=== PATIENT | female | born 1960 | race African-American/Black ===

== ENCOUNTER 2024-05-23 07:57 | Day surgery (SDC) | payer BC ==
[2024-04-20 07:37] LABS: Basophils # (auto) 0.1 10 ^3/uL (0-0.2); Eosinophils # (auto) 0.1 10 ^3/uL (0-0.8); Lymphocytes # (auto) 2.3 10 ^3/uL (0.4-5.4); Lymphocytes % (auto) 41.4 % (10.0-50.0); Mean Corpuscular Hemoglobin 30.2 pg (28.0-32.0); Mean Corpuscular Hgb Conc. 32.6 g/dL (32.0-36.0); Mean Corpuscular Volume 92.5 fL (80.0-100.0); Monocytes # (auto) 0.4 10 ^3/uL (0-1.3); Monocytes % (auto) 7.3 % (0.0-12.0); Neutrophils # (auto) 2.8 10 ^3/uL (1.6-8.6); Neutrophils % (auto) 49.3 % (37.0-80.0); Nucleated Red Blood Cells % 0.1 %; Platelet Count (auto) 282 10^3/uL (140-450); Red Blood Cells 4.97 10^6/uL (4.0-5.20); Red Cell Distribution Width 13.8 % (11.8-14.3); White Blood Cell 5.7 10^3/uL (4.4-10.8)
[2024-04-20 07:49] LABS: INR 1.04 (0.9-1.15); Partial Thromboplastin Time 25.9 SEC (24.5-34.5)
[2024-04-20 08:10] LABS: Alanine Aminotransferase 17 U/L (7-40); Alkaline Phosphatase 67 U/L (46-116); Anion Gap 7 (5-15); BUN/Creatinine Ratio 8.9 (10.0-20.0); Blood Urea Nitrogen 9 mg/dL (9-23); Calcium 9.9 mg/dL (8.7-10.4); Carbon Dioxide 29 mmol/L (20-31); Potassium 3.8 mmol/L (3.5-5.1); Sodium 143 mmol/L (136-145)
[2024-04-20 08:11] LABS: Albumin 4.3 g/dL (3.2-4.8); Aspartate Aminotransferase 22 U/L (13-40)
[2024-04-20 08:12] LABS: Bilirubin, Total 0.6 mg/dL (0.2-1.0); Chloride 107 mmol/L (98-107); Glucose 121 mg/dL (74-106); Total Protein 7.3 g/dL (5.7-8.2)
[2024-05-20 14:23] LABS: Basophils # (auto) 0.1 10 ^3/uL (0-0.2); Basophils % (auto) 0.9 % (0.0-2.0); Eosinophils # (auto) 0.1 10 ^3/uL (0-0.8); Eosinophils % (auto) 0.8 % (0.0-7.0); Hemoglobin 14.8 g/dL (12.2-16.2); Lymphocytes # (auto) 2.8 10 ^3/uL (0.4-5.4); Lymphocytes % (auto) 39.8 % (10.0-50.0); Mean Corpuscular Hemoglobin 30.5 pg (28.0-32.0); Mean Corpuscular Hgb Conc. 32.8 g/dL (32.0-36.0); Mean Corpuscular Volume 92.8 fL (80.0-100.0); Monocytes # (auto) 0.5 10 ^3/uL (0-1.3); Monocytes % (auto) 6.7 % (0.0-12.0); Neutrophils # (auto) 3.7 10 ^3/uL (1.6-8.6); Neutrophils % (auto) 51.8 % (37.0-80.0); Nucleated Red Blood Cells % 0.1 %; Platelet Count (auto) 283 10^3/uL (140-450); Red Blood Cells 4.85 10^6/uL (4.0-5.20); Red Cell Distribution Width 14.1 % (11.8-14.3); White Blood Cell 7.1 10^3/uL (4.4-10.8)
[2024-05-20 14:38] LABS: INR 1.06 (0.9-1.15); Partial Thromboplastin Time 25.7 SEC (24.5-34.5); Prothrombin Time 11.2 sec (9.3-11.8)
[2024-05-20 15:12] LABS: Alanine Aminotransferase 19 U/L (7-40); Albumin 4.5 g/dL (3.2-4.8); Alkaline Phosphatase 68 U/L (46-116); Anion Gap 7 (5-15); Aspartate Aminotransferase 20 U/L (13-40); BUN/Creatinine Ratio 18.2 (10.0-20.0); Bilirubin, Total 0.5 mg/dL (0.2-1.0); Blood Urea Nitrogen 16 mg/dL (9-23); Calcium 9.7 mg/dL (8.7-10.4); Carbon Dioxide 29 mmol/L (20-31); Glucose 88 mg/dL (74-106); Sodium 143 mmol/L (136-145); Total Protein 7.3 g/dL (5.7-8.2)
[2024-05-20 15:19] LABS: Chloride 107 mmol/L (98-107)
[~2024-05-23] VITALS: Ht 162.6 cm; Wt 85.3 kg
[~2024-05-23 07:57] MED LIST: DICL0.1S20 OP; METO-289 PO
[2024-05-23] MEDS ORDERED: SODIUM CHLORIDE LOCK 10 ML ONE (08:26)
[2024-05-23] MEDS ORDERED: MIDAZOLAM HCL 2MG/2ML 2ml VIAL (1mg/ml) ONE (08:26)
[2024-05-23 09:29] VITALS: PULSE 73; RESP 18; O2SAT 99
[2024-05-23] MEDS: fentaNYL CITRATE 100 MCG/2 ML VL ONE (09:37)
[2024-05-23] MEDS: MIDAZOLAM HCL 5 MG/ML-1ML VIAL ONE (09:37)
[2024-05-23 09:56] VITALS: PULSE 72; RESP 11; TEMP 99.3; O2SAT 99
--- NOTE | 2024-05-23 10:02 | DVHNC2 ---
Procedure - DATE OF PROCEDURE: May 23, 2024 SURGEON: MEGAN HENRY MD REFERRING PROVIDER: Dr. Nasra FRAZIER PROCEDURE PERFORMED: 1. Colonoscopy with cold biopsy with moderate sedation 2. Colonoscopy with clip placement to control bleeding with moderate sedation PRE-PROCEDURE DIAGNOSIS: 1. Blood in the stool POSTPROCEDURE DIAGNOSIS: 1. Five small colon polyps 2. Mild left-sided diverticulosis 3. Medium external hemorrhoids INDICATIONS FOR PROCEDURE: The patient is a 63-year-old female who presents for outpatient colonoscopy for rectal bleeding MEDICATIONS USED: 4 mg Versed IV and 50 mcg of fentanyl IV DETAILS OF THE PROCEDURE: Informed consent was obtained after risks, benefits, and alternatives, were discussed at length with the patient. The patient gave consent to the procedure as well as the medication used for sedation. The patient was placed in the left lateral decubitus position. Digital rectal exam showed external hemorrhoids. An Olympus variable torsion pediatric colonoscope was inserted into the rectum and advanced to the cecum. The cecum was identified by the ileocecal valve and the appendiceal orifice. The scope was then withdrawn. The prep was good with little amounts of liquid stool. The patient had five small colon polyps measuring between 3 mm and 4 mm all removed with cold biopsy forceps completely. A two in the cecum, one in the ascending colon, and two in the descending colon. In the descending colon there was oozing of blood from one of the polypectomy sites. Two Endoclips were placed for control of bleeding. The patient had mild left-sided diverticulosis. Retroflexion showed no abnormalities. More than 8 minutes withdrawal time was noted. The patient tolerated the procedure well. [place] BOWEL PREP SCORE: 9. COLONOSCOPY START TIME: 939 CECUM TIME: 943 COLONOSCOPY END TIME: 951 IMPRESSION: 1. Polyps more colon polyps 2. Mild left-sided diverticulosis 3. External hemorrhoids likely cause of bleeding RECOMMENDATIONS: 1. Follow up with procedure results 2. Repeat colonoscopy in five years unless otherwise indicated by pathology, symptoms were family history 3. High-fiber diet 4. Follow up with primary care physician 5. It was noted that the patient's blood pressure was elevated throughout the pr ocedure. Patient needs better blood pressure control . I WOULD LIKE TO THANK FOR THIS REFERRAL MEGAN HENRY MD May 23, 2024 10:02
[2024-05-23 10:41] VITALS: BP 169/89; PULSE 76; RESP 14; O2SAT 97
== END 2024-05-23 10:45 | disposition home or self-care (01) ==
LOC: GI 07:57
PROVIDERS: ATTEND Specialist
DX: K92.1 Melena (principal); K57.30 Diverticulosis of large intestine without perforation or abscess without bleeding; K64.4 Residual hemorrhoidal skin tags; D12.0 Benign neoplasm of cecum; I10 Essential (primary) hypertension; Z79.899 Other long term (current) drug therapy; Z88.1 Allergy status to other antibiotic agents; Z88.8 Allergy status to other drugs, medicaments and biological substances; Z98.890 Other specified postprocedural states
CPT/HCPCS: 36415; 45380; 80053; 85025; 85610; 85730; 88305; J2250; J3010

== ENCOUNTER 2024-10-12 06:10 | Outpatient (CLI) | payer BC ==
[2024-10-12 08:09] LABS: Chloride 105 mmol/L (98-107); Potassium 3.8 mmol/L (3.5-5.1); Sodium 141 mmol/L (136-145)
[2024-10-12 08:10] LABS: Anion Gap 8 (5-15); Carbon Dioxide 28 mmol/L (20-31)
[2024-10-12 08:11] LABS: Calcium 9.9 mg/dL (8.7-10.4)
[2024-10-12 08:16] LABS: BUN/Creatinine Ratio 13.4 (10.0-20.0); Blood Urea Nitrogen 13 mg/dL (9-23)
[2024-10-12 08:17] LABS: Glucose 116 mg/dL (74-106)
== END 2024-10-12 17:00 | disposition home or self-care (01) ==
LOC: LAB 06:10
PROVIDERS: ATTEND Specialist
DX: K92.1 Melena (principal); K59.00 Constipation, unspecified
CPT/HCPCS: 36415; 80048

== ENCOUNTER → 2024-12-05 | Day surgery (SDC) | payer BC ==
[2024-12-03 14:47] LABS: Hematocrit 46.0 % (36.0-46.0); Hemoglobin 15.1 g/dL (12.2-16.2); Mean Corpuscular Hemoglobin 29.9 pg (28.0-32.0); Mean Corpuscular Volume 90.9 fL (80.0-100.0); Nucleated Red Blood Cells % 0.0 %
[2024-12-03 14:57] LABS: INR 1.04 (0.9-1.15); Partial Thromboplastin Time 26.8 SEC (24.5-34.5); Prothrombin Time 11.0 sec (9.3-11.8)
[2024-12-03 15:13] LABS: Alanine Aminotransferase 12 U/L (7-40); Albumin 4.4 g/dL (3.2-4.8); Alkaline Phosphatase 71 U/L (46-116); Anion Gap 8 (5-15); BUN/Creatinine Ratio 13.6 (10.0-20.0); Bilirubin, Total 0.5 mg/dL (0.2-1.0); Blood Urea Nitrogen 12 mg/dL (9-23); Calcium 9.4 mg/dL (8.7-10.4); Carbon Dioxide 27 mmol/L (20-31); Glucose 95 mg/dL (74-106); Potassium 3.9 mmol/L (3.5-5.1); Sodium 142 mmol/L (136-145); Total Protein 7.6 g/dL (5.7-8.2)
[2024-12-03 15:14] LABS: Chloride 107 mmol/L (98-107)
[~2024-12-05] VITALS: Ht 162.6 cm; Wt 86.6 kg
[2024-12-05] MEDS: MIDAZOLAM HCL 2MG/2ML 2ml VIAL (1mg/ml) ONE (08:55)
[2024-12-05] MEDS: fentaNYL CITRATE 100 MCG/2 ML VL ONE (08:55)
[2024-12-05 09:05] VITALS: PULSE 96; RESP 20; TEMP 97.8; O2SAT 94
--- NOTE | 2024-12-05 09:05 | DVHNC2 ---
Procedure - DATE OF PROCEDURE: 2024 SURGEON: MEGAN HENRY MD REFERRING PROVIDER: DICK VALE MD PROCEDURE PERFORMED: 1. Esophagogastroduodenoscopy with biopsy under conscious sedation PRE-PROCEDURE DIAGNOSIS: 1. Left upper quadrant abdominal pain 2. Bloating POSTPROCEDURE DIAGNOSIS 1. Normal duodenum, biopsies taken 2. Mild erosive gastritis biopsies taken 3. Small hiatal hernia 4. Normal esophagus MEDICATIONS USED: 6 MG OF VERSED IV AND 50 MCG OF FENTANYL IV DETAILS OF THE PROCEDURE: Informed consent was obtained after risks, benefits, and alternatives, were di scussed at length with the patient. The patient gave consent to the procedure as well as the medication used for sedation. The patient was placed in the left lateral decubitus position. An Olympus endoscope was inserted into the oropharynx and advanced into the esophagus, then into the stomach, then into the duodenal bulb and duodenum. The duodenal bulb and duodenum were normal. Biopsies were taken given the patient's symptoms. The scope was then withdrawn. The patient had mild erosive gastritis, biopsies were taken. The scope was then withdrawn. Retroflexion showed a small hiatal hernia. The scope was then withdrawn the Z-line was at 39 cm. The patient had mild no abnormality seen in the esophagus. The scope was then withdrawn and procedure completed. The patient tolerated procedure well. IMPRESSION: 1. Small hiatal hernia 2. Mild erosive gastritis 3. Normal duodenum to the 2nd portion No findings on today's endoscopy explain the patient's symptoms of bloating and abdominal pain. Patient will need further workup. Patient was noted to have mild gastritis and a small hiatal hernia. RECOMMENDATIONS: 1. Follow up in GI clinic for procedure and pathology results 2. Consider further workup with imaging and/or colonoscopy 3. Anti-reflux precautions 4. Consider biliary etiology, SIBO, IBS, non ulcer dyspepsia, versus other I WOULD LIKE TO THANK DR. DICK VALE FOR THIS REFERRAL MEGAN HENRY MD Dec 05, 2024 09:05
[2024-12-05 09:40] VITALS: BP 170/77; PULSE 86; RESP 14; O2SAT 16
== END | disposition home or self-care (01) ==
LOC: GI 07:17
PROVIDERS: ATTEND Specialist
DX: R10.12 Left upper quadrant pain (principal); K29.50 Unspecified chronic gastritis without bleeding; K44.9 Diaphragmatic hernia without obstruction or gangrene; I10 Essential (primary) hypertension; Z79.899 Other long term (current) drug therapy; Z98.890 Other specified postprocedural states
CPT/HCPCS: 36415; 43239; 80053; 85025; 85610; 85730; 88305; 88342; J2250; J3010